=== PATIENT | male | born 1990 | race Caucasian/White ===

== ENCOUNTER 2018-03-23 19:20 | Emergency (ER) | payer BC ==
[2018-03-23 19:35] VITALS: BP 128/71
--- NOTE | 2018-03-23 21:52 | EDM.PDOC ---
ED HPI GENERAL MEDICAL PROBLEM - General Chief Complaint: Lower Extremity Injury/Pain Stated Complaint: FELL ON LEFT HIP, KNOW SWOLLEN Time Seen by Provider: 03/23/18 20:00 Source of Information: Reports: Patient History Limitations: Reports: No Limitations - History of Present Illness INITIAL COMMENTS - FREE TEXT/NARRATIVE: patient comes emergency department today with complaints of the left hip pain and swelling. Approximately week and a half ago the patient slipped and fell landing on his left hip. He developed a bruise as well as some swelling which resolved. Over the past 24-36 hours he has developed a rather large area of swelling on his left hip. He has minimal pain. He has not had any recent injury to that left hip. He denies any paresthesias down his left lower extremity. He denies any change in the functionality of his upper or lower extremity. He denies any change in his bowel or bladder habits. He is not on any long-term anticoagulation. He has had no fever or chills. When the incident happened he did not have a break in the skin. He is not diabetic. No Chest pain or SOB. Left Hip Pain Score (Numeric/FACES): 5 - Related Data Allergies Allergy/AdvReac Type Severity Reaction Status Date / Time Penicillins Allergy Hives Verified 03/23/18 19:27 Home Meds: Home Meds Gabapentin 1 tab PO ASDIRECTED 09/16/15 [History] Multivitamin [Multivitamins] 1 each PO DAILY 09/16/15 [History] oxyCODONE HCl [Oxycodone HCl] 1 tab PO ASDIRECTED 09/16/15 [History] LORazepam 1 mg PO DAILY 07/10/17 [History] Sertraline [Zoloft] 15 mg PO DAILY 07/10/17 [History] Zolpidem [Ambien] 5 mg PO BEDTIME 07/10/17 [History] Past Medical History - Past Health History Medical/Surgical History: Denies Medical/Surgical History HEENT History: Reports: Impaired Vision Musculoskeletal History: Reports: Fracture Neurological History: Reports: Brain Injury Psychiatric History: Reports: Anxiety Social & Family History - Family History Family Medical History: Noncontributory - Tobacco Use Smoking Status *Q: Never Smoker - Caffeine Use Caffeine Use: Reports: None - Recreational Drug Use Recreational Drug Use: No - Living Situation & Occupation Living situation: Reports: with Family Occupation: Disabled Review of Systems - Review of Systems Review Of Systems: ROS reveals no pertinent complaints other than HPI. ED EXAM, GENERAL - Physical Exam Exam: See Below Exam Limited By: No Limitations General Appearance: Alert, WD/WN, No Apparent Distress Respiratory/Chest: No Respiratory Distress, Lungs Clear, Normal Breath Sounds, No Accessory Muscle Use Cardiovascular: Normal Peripheral Pulses, Regular Rate, Rhythm, No Murmur, No Rub Peripheral Pulses: 2+: Femoral (L), Femoral (R), Popliteal (L), Popliteal (R), Posterior Tibial (L), Posterior Tibial (R), Dorsalis Pedis (L), Dorsalis Pedis ( R) Extremities: Leg Pain (eexamination of the left extremity. In the area of the leftgreater trochanter there is a quite swollen and somewhat hard area.It is not erythematous hot tender. There is no breaks in the skin areas approximately 10 inches laterally in 4-5 inches vertically. Just inferiorly to this there is a small amount of yellow greenbruising. There is also some loss of fullness below that area when compared to the right side. He is able to flex and extend abduct and adduct his left hip appropriately. As well as his left knee.He has normal pulses throughout the left lower extremity. His pelvis is stable.) Neurological: Alert Psychiatric: Normal Affect Course - Vital Signs Last Recorded V/S: Last Vital Signs Temp 36.7 C 03/23/18 19:33 Pulse 65 03/23/18 19:33 Resp 16 03/23/18 19:33 BP 128/71 03/23/18 19:33 Pulse Ox 99 03/23/18 19:33 - Radiology Interpretation Free Text/Narrative:: xx-ray per radiology normal bilateral hip x-ray. - Re-Assessments/Exams Free Text/Narrative Re-Assessment/Exam: 03/24/18 00:08 I explained to the patient that this really appears that this is a muscle tear. It would be unlikely for infection at this places he is not diabetic nor did he have a break in the skin he has no fever chills malaise. Also this was a hematoma would be slowly resolving and not worsening later without any trauma and not on any anti-coagulation. I wonder if he did not initially tear is muscle not completely and finished it off as he has been very active as he works 2-3 jobs and is quite physically active with his lower extremities. He has had no change in the functionality of his leg and he does not walk with pain limp or difficulty. When comparing the left of the right leg there is clearly a loss of fullness in that area and I wonder if this is not a complete transection of one of the muscles in this area. Primary diagnosis of this would be completed through MRI. I will refer him to physical therapy for initial management and follow-up with primary care or orthopedics for possible MRI if not improving. He was understandable of this and his questions were answered Departure - Departure Time of Disposition: 21:49 Disposition: Home, Self-Care 01 Clinical Impression: Torn muscle - Discharge Information Instructions: Muscle Strain, [id number] Forms: ED Department Discharge Additional Instructions: Tylenol and or Ibuprofen for pain. RICE therapy to the left leg. See Physical therapy tomorrow for evaluate and treatment. Contact me if any questions. [phone]. Try to limit your usage of the left leg. Return to the ED if new or worsening symptoms. Follow up with primary care this week for recheck and possible MRI. - Assessment/Plan Assessment:: Left posterior thigh muscle tear/strain Contusion to the left hip. Plan: Tylenol and or Ibuprofen for pain. RICE therapy to the left leg. See Physical therapy tomorrow for evaluate and treatment. Contact me if any questions. [phone]. Try to limit your usage of the left leg. Return to the ED if new or worsening symptoms. Follow up with primary care this week for recheck and possible MRI.
== END 2018-03-23 21:57 | disposition home or self-care (01) ==
LOC: DL.ED 19:20
DX: S76.912A Strain of unspecified muscles, fascia and tendons at thigh level, left thigh, initial encounter (principal); S70.02XA Contusion of left hip, initial encounter; Z88.0 Allergy status to penicillin; Z79.899 Other long term (current) drug therapy; W01.0XXA Fall on same level from slipping, tripping and stumbling without subsequent striking against object, initial encounter
CPT/HCPCS: 99283

== ENCOUNTER 2025-03-01 06:37 | Day surgery (SDC) | payer BC ==
[~2025-03-01 06:37] MED LIST: Propofol 200 MG/20 ML SDV ONE
[2025-03-01] MEDS: Lactated Ringers 1,000 ML IV SCH (07:07)
[2025-03-01 09:12] VITALS: PULSE 50
[2025-03-01 09:40] VITALS: BP 100/59
== END 2025-03-01 09:55 | disposition home or self-care (01) ==
LOC: DL.ENDO 06:37
PROVIDERS: ATTEND Internal Medicine Gastroenterology
DX: K31.89 Other diseases of stomach and duodenum (principal); K31.4 Gastric diverticulum; K21.9 Gastro-esophageal reflux disease without esophagitis; F41.1 Generalized anxiety disorder; Z88.0 Allergy status to penicillin; Z79.899 Other long term (current) drug therapy
CPT/HCPCS: J7120